=== PATIENT | male | born 1985 | race Caucasian/White ===

== ENCOUNTER 2018-06-22 08:27 | Emergency (ER) | payer BC ==
[~2018-06-22] VITALS: Ht 185.4 cm; Wt 79.5 kg
[2018-06-22 08:34] VITALS: TEMP 98.8
[2018-06-22] MEDS ORDERED: FIORICET 325 MG1 TA1 PO (10:21)
[2018-06-22 11:27] VITALS: BP 131/73; PULSE 62
== END 2018-06-22 11:25 | disposition home or self-care (01) ==
LOC: COL.ER 08:27
DX: R51 Headache (principal); F17.210 Nicotine dependence, cigarettes, uncomplicated
CPT/HCPCS: J0780; J1200